=== PATIENT | female | born 1995 | race African-American/Black ===

== ENCOUNTER 2017-07-21 11:29 | Observation (INO) ==
--- NOTE | 2017-07-21 12:58 | Emergency Department Note ---
Mihai Wilson Brittany, am scribing for, and in the presence of, Rito Rowley MD 12:56. Amrik Wilson Phillip K, MD, personally performed the services described in this documentation, ascribed by Pamela Holm in my presence, and it is both accurate and complete . Arrival - Arrival Chief Complaint: Abscess Stated Complaint: referral for dr blount ED Nursing Triage Note: sent from [facility] for abscess to right buttock onset on Thursday - pt denies any drainage from the area Mode of Arrival: Ambulatory Limitations: No Limitations Source: Patient - History of Present Illness HPI Narrative: This is a 22 y/o black female, who presents to the ED for further evaluation of an abscess which started 5 days ago, She notes she was sent from the [facility] for further evaluation of a right buttocks abscess. She denies any drainage to the drainage site or a fever, but notes nausea. Pt has other complaints/pain in the ED at this time. Pt denies a PMHx. Pt denies a surgical hx. Pt denies a family medical Hx. Pt denies a social hx. Onset (ago): day(s) (Started 5 days ago) Consistency: constant Severity: moderate Date of Last Menstrual Period: now Allergies/Adverse Reactions: Allergies Allergy/AdvReac Type Severity Reaction Status Date / Time iodine Allergy Severe ANAPHYLAXIS Verified 05/30/17 15:45 Home Medications: Home Medications Medication Instructions Recorded Confirmed Type Etonogestrel [Nexplanon] 68 mg SUBCUT ONCE 07/21/17 07/21/17 History Review of System - Review of System 12 point system: reviewed and no additional remarkable complaints except as stated - Review of System Review of Systems: Abscess to the right buttocks area. Constitutional: Absent: fever Gastrointestinal: Present: nausea Medical,Surgical,& Family Hx - Medical History Neurology: No history of: Multiple Sclerosis - Social History Smoking Status: Never smoker Frequency of Alcohol Use: None Type of Drug Use: None Exam Vital Signs: Vital Signs Temperature 100.3 F H 07/21/17 15:50 Pulse Rate 89 07/21/17 15:50 Respiratory Rate 20 07/21/17 15:50 Blood Pressure 119/67 07/21/17 15:50 O2 Sat by Pulse Oximetry 100 07/21/17 15:50 - General General appearance: alert - Head Head exam: Present: atraumatic - Eye Eye exam: Present: PERRL, EOMI. Absent: conjunctival injection, nystagmus - ENT ENT exam: Present: normal exam, mucous membranes moist - Neck Neck exam: Present: full ROM, trachea midline. Absent: tenderness - Chest Chest inspection: Present: symmetric chest wall rise. Absent: tenderness - Respiratory Respiratory exam: Present: normal lung sounds bilaterally. Absent: respiratory distress - Cardiovascular Cardiovascular exam: Present: regular rate, normal rhythm, normal heart sounds. Absent: murmur, rubs, gallop, clicks - Abdominal Exam Abdominal exam: Present: soft, normal bowel sounds. Absent: tenderness - Rectal Exam Rectal exam: Present: other (Perineal abscess.There is a flucation noted. ) - Extremities Exam Extremities exam: Present: full ROM, normal capillary refill. Absent: pedal edema, calf tenderness - Back Exam Back exam: Present: full ROM. Absent: tenderness, muscle spasm, rashes - Neurological Exam Neurological exam: Present: alert, oriented X3, CN II-XII intact. Absent: motor sensory deficit - Psychiatric Psychiatric exam: Present: normal affect, normal mood. Absent: depressed, agitated, anxious, flat affect, manic - Skin Skin exam: Present: warm, dry, intact, normal color. Absent: rash, cyanosis, diaphoresis Course Course Narrative: Patient discussed with Dr. Garay. Disposition Clinical Impression: Perineal abscess Clinical Impression: (Ruled Out): Perirectal abscess Case discussed with: patient, patient's family Disposition: Still a Patient Condition: Guarded
[2017-07-21] MEDS ORDERED: CLINDAMYCIN INJ 900 MG in PREMIX 1 EACH IV ONE (13:23)
--- NOTE | 2017-07-21 13:25 | General Surg History&Physical ---
Assessment and Plan (1) Perirectal abscess Status: Acute Assessment and plan: Impression: Abscess of the right perineum Plan: Discussed options and patient like to proceed with incision and drainage. I discussed the procedure house performed and anticipated recovery. Risk of the procedure including bleeding, infection, damage to surrounding structures, need for further surgery were all discussed in detail and she would like to proceed. Current Visit: Yes History of Present Illness Chief complaint: Abscess of the perineum History of present illness: Ms. Leung is a 22 year old female has had pain redness and an "infected cyst" of the perineal region. This was beginning on Thursday and has slowly progressed. She is not seen anyone for treatment. She has some nausea. She has not eaten today. She has no fever. She is otherwise healthy. Home Medications Medication Instructions Recorded Confirmed Type Etonogestrel [Nexplanon] 68 mg SUBCUT ONCE 07/21/17 07/21/17 History Allergies Allergy/AdvReac Type Severity Reaction Status Date / Time iodine Allergy Severe ANAPHYLAXIS Verified 05/30/17 15:45 Medical,Surgical,& Family Hx - Medical History Medical History: noncontributory Neurology: No history of: Multiple Sclerosis - Social History Smoking Status: Never smoker Frequency of Alcohol Use: None Type of Drug Use: None Exam - Constitutional Vitals: Period Temp Pulse Resp BP Sys/Hinds Pulse Ox Last 24 Hr 99.2 F-99.2 F 97-97 20-22 152-152/99-99 99 General appearance: no acute distress - Head Head exam: Present: normocephalic - Neck Neck exam: Present: normal inspection - Respiratory Respiratory exam: Present: clear to auscultation bilaterally - Cardiovascular Cardiovascular exam: Present: RRR - GI/Abdominal GI/Abdominal exam: Present: soft (Nontender nondistended) - Anus/Rectum Anus/Rectum: other (In the perineal region there is an area of fluctuance with surrounding erythema. This is at the distal portion of the right labia encroaching upon the perianal region.) 12 point system: reviewed and no additional remarkable complaints except as stated
[2017-07-21] MEDS ORDERED: FAMOTIDINE 20 MG/2 ML VIAL IV ONE (14:10)
[2017-07-21] MEDS ORDERED: PROPOFOL 200 MG/20 ML VIAL IV ONE (14:38)
[2017-07-21] MEDS ORDERED: ONDANSETRON 4 MG/2 ML VIAL ONE (14:38)
[2017-07-21] MEDS ORDERED: LIDOCAINE 2% 5 ML VIAL ONE (14:38)
[2017-07-21] MEDS ORDERED: CLINDAMYCIN INJ 50 ML IV ONE (14:40)
[2017-07-21] MEDS ORDERED: MORPHINE 2 MG/1 ML SYRINGE IV PRN (14:47)
[2017-07-21] MEDS ORDERED: ACETAMINOPHEN 325 MG TABLET PO PRN (14:47)
[2017-07-21] MEDS ORDERED: ONDANSETRON 4 MG/2 ML VIAL IV PRN ×2 (14:47→15:19)
--- NOTE | 2017-07-21 14:50 | Operative Note ---
Date of procedure: 07/21/17 Pre-op diagnosis: Abscess right perineum Post-op diagnosis: same Procedure: Procedure performed: Incision and drainage of right perineum abscess Procedure in detail: After informed consent was obtained, patient was taken operating suite lights upon the operating table. After general anesthesia was induced she was placed in frog-leg position and the perineum was prepped and draped in usual sterile fashion. After procedural pause incision made over the fluctuant area and there was copious return of foul-smelling purulence. Cultures were obtained and sent. There was no necrotic tissue. All the purulence was expressed. All loculations freed by blunt finger dissection. The cavity was thoroughly irrigated and suctioned. There is good hemostasis. It was packed with half-inch iodoform gauze. Sterile dressings applied. Patient was explained taken recovery room in stable condition. All lap and needle counts correct at the end of the case per Anesthesia: DELANO Surgeon / Physician: Aiden Gimenez Estimated blood loss: other (Less than 5 cc) Specimens: other (Culture sent) Condition: stable Disposition: PACU Discharge Plan - Discharge Data Disposition: Still a Patient - Discharge Medications No Action Etonogestrel [Nexplanon] 68 mg SUBCUT ONCE - Follow Up or Referral - Forms/Instructions
[2017-07-21] MEDS ORDERED: HYDROmorphone 2 MG/1 ML VIAL IV PRN (15:19)
[2017-07-21] MEDS ORDERED: LACTATED RINGERS 1,000 ML IV SCH (15:30)
[2017-07-21] MEDS ORDERED: SEVOFLURANE 1 UNIT/15 MINUTE INH ONE (15:43)
[2017-07-21] MEDS ORDERED: MIDAZOLAM 2 MG/2 ML VIAL ONE (15:43)
[2017-07-21] MEDS ORDERED: fentaNYL 100 MCG/2 ML VIAL ONE ×2 (15:43→15:44)
--- NOTE | 2017-07-21 18:11 | Anesthesia Post-Op ---
Anesthesia Post OP - Post Ansesthetic Evaluation Patient seen in post op: Yes Resp: within normal limits CV: within normal limits Mental: within normal limits Temp: within normal limits [id number]: within normal limits Nausea and Vomiting: within normal limits Pain: within normal limits
[2017-07-21] MEDS: CLINDAMYCIN INJ 600 MG in PREMIX 1 EACH IV SCH (21:23)
[2017-07-22] MEDS: CLINDAMYCIN INJ 600 MG in PREMIX 1 EACH IV SCH ×3 (02:42→13:49)
[2017-07-22] MEDS ORDERED: PANTOPRAZOLE 40 MG TABLET PO SCH (09:00)
--- NOTE | 2017-07-22 10:48 | Discharge Summary ---
Hospital Course - Hospital Course Hospital Course: Patient is a 22-year-old female who presented with a perineal abscess which was incised and drained in the operating room. She responded well to IV clindamycin. She tolerated bedside dressing change without complication. She was discharged home in good condition with education on sitz bath, dressing changes, and oral antibiotic regimen. Oral and analgesics were provided. Her mother was at bedside who report assisting in performing her wound care. She was discharged home in good condition with only followed Dr. Gimenez. Cultures were pending at the time of discharge. Diagnosis - Discharge Diagnosis (1) Perineal abscess Status: Acute Specialty Discharge - Follow Up or Referrals Follow up with: Aiden Gimenez MD [Physician] - 1 Week Discharge Plan - Discharge Data Disposition: Disch To Home/Self Care Condition at Discharge: Stable Discharge Diet: regular diet Activity: other (Avoid aerobic activity or perspiration) Hygiene: may shower Driving: other (No driving while taking narcotics) Contact your physician if you experience:: fever over 101, Redness or swelling, Shortness of breath, pain uncontrolled by pain medications - Discharge Medications New HYDROcodone/ACETAMIN 7.5-325 [Coldiron 7.5-325] 1 - 2 tablet PO Q4H PRN #30 tablet PRN Reason: Pain Moderate To Severe (4-10) Clindamycin Cap [Cleocin Cap] 600 mg PO Q8HR #21 capsule Continue Etonogestrel [Nexplanon] 68 mg SUBCUT ONCE - Follow Up or Referral Follow Up: Aiden Gimenez MD [Physician] - 1 Week - Forms/Instructions Instructions: Clindamycin (By mouth), Sitz Bath (DC) Additional Discharge Instructions: Daily or twice daily: remove packing, shower , perform sitz bath and repack with 1/4 inch iodoform gauze provided loosely. Exam - Constitutional Vitals: Period Temp Pulse Resp BP Sys/Hinds Pulse Ox Last 24 Hr 97.5 F-100.3 F 77-103 12-26 107-152/62-99 97-100 General appearance: no acute distress - Respiratory Respiratory exam: Present: clear to auscultation bilaterally - Cardiovascular Cardiovascular exam: Present: regular rate and rhythm - GI/Abdominal GI/Abdominal exam: Present: normal bowel sounds, soft. Absent: distended, tenderness - Neurological Exam Neurological exam: Present: alert, oriented X3 - Psychiatric Psychiatric exam: Present: normal affect, normal mood - Skin Skin exam: Present: other (Perineal abscess stress dressing was removed to; packing was removed. There was no purulence or malodor noted. The area was irrigated with 20 cc of saline and was repacked with quarter inch iodoform gauze. Patient tolerated the dressing change well at bedside.) Discharge Results Procedures and tests throughout hospitalization: Pending Orders 07/21/17 Abscess Culture Routine Anaerobic Culture Routine Culture results pending Patient had I&D of perineal abscess on 07/21/2017 Labs on day of discharge: Labs from last 24 hours 07/21/17 13:36 Serum , Qual Negative DS: Provider Date of admission: 07/21/17 14:47 Primary care physician: YOGI Akers Attending physician on admission: Aiden Gimenez MD Discharging clinician: Nikkie Wright PA-C
[2017-07-22 12:40] VITALS: BP 131/76
== END 2017-07-22 14:01 | disposition home or self-care (01) ==
LOC: N.ED 11:29 → N.3E 14:23 → INTOOBSV 14:47
PROVIDERS: ADMIT Surgery; ATTEND Surgery

== ENCOUNTER 2020-05-21 04:49 | Inpatient (IN) ==
[2020-05-21 05:33] LABS: Apearance,Urine CLEAR (Clear); Bacteria,Urine Occasional /HPF (Few); Bilirubin,Urine Negative (Negative); Blood, Urine Large mg/dL (Negative); Glucose,Urine (UA) Negative (Negative); Ketones,Urine Negative (Negative); Mucus,Urine Occasional /LPF (Occasional); Nitrite,Urine Negative (Negative); Protein,Urine Negative; RBC,Urine 1 /HPF (0-4); Squamous Epithelial Cell,Urine Few /HPF (0-10); Urine Color Yellow (Yellow); Urine Urobilinogen < 2.0 EU/DL (0.2-1.0); WBC,Urine 2 /HPF (0-6)
[2020-05-21] MEDS ORDERED: BUTORPHANOL 2 MG/ML VIAL IV PRN (07:53)
[2020-05-21] MEDS ORDERED: LIDOCAINE 1% 50 ML VIAL MISC INJ ONE (07:53)
[2020-05-21] MEDS ORDERED: miSOPROStoL 200 MCG TABLET VAG PRN (07:53)
[2020-05-21] MEDS ORDERED: CARBOPROST TROMETHAMINE 250 MCG/ML AMP IM PRN (07:53)
[2020-05-21 08:19] LABS: Basophils % 0.2 % (0.0-0.8); Hematocrit 40.6 VOL% (35.7-47.0); Hemoglobin 13.8 GM/DL (12.0-16.0); Immature Granulocytes % 0.5 %; Immature Granulocytes Absolute 0.04 #; Lymphocytes # 1.5 10*3/uL (1.4-4.0); Lymphocytes % 17.8 % (21.3-54.2); Monocytes % 14.4 % (1.7-12.7); Neutrophils % 67.1 % (38.7-73.9); Platelet Count 221 T/CUMM (130-400); Red Blood Count 4.23 MC/CUMM (3.8-5.5); Red Cell Distribution Width 12.7 % (9.3-17.3); White Blood Count 8.7 T/CUMM (4-12)
[2020-05-21] MEDS: LABETALOL 100 MG TABLET PO SCH ×3 (08:32→14:42)
[2020-05-21 08:35] LABS: PT Patient Result 10.3 SECS (9.8-11.9); Partial Thromboplastin Time 28.9 SECS (23.9-33.8)
[2020-05-21 09:04] LABS: Albumin 3.2 G/DL (3.4-5.0); Bilirubin,Total 1.1 MG/DL (0.2-1.0); Osmolality,Calculated 269.8 MOS/KG (273-304); Total Protein 7.4 G/DL (6.4-8.3); Uric Acid 3.9 MG/DL (2.6-6.0)
[2020-05-21] MEDS: LACTATED RINGERS 1,000 ML IV SCH ×2 (11:32→23:00)
[2020-05-21] MEDS: ONDANSETRON 4 MG/2 ML VIAL IV PRN (11:35)
[2020-05-21] MEDS ORDERED: LACTATED RINGERS 1,000 ML IV ONE (19:34)
[2020-05-21] MEDS ORDERED: ePHEDrine 50 MG/ML VIAL IV PRN (20:00)
[2020-05-21] MEDS ORDERED: FAMOTIDINE 20 MG/2 ML VIAL IV ONE (20:00)
[2020-05-21] MEDS ORDERED: CITRIC ACID/SODIUM CITRATE 30 ML UDCUP PO ONE (20:00)
[2020-05-21] MEDS ORDERED: NALOXONE 0.4 MG/ML VIAL IV PRN (20:00)
[2020-05-21] MEDS ORDERED: diphenhydrAMINE 50 MG/1 ML VIAL IV PRN (20:00)
[2020-05-21] MEDS: fentaNYL 2 MCG/ROPIV 0.2% EPID 100 ML EPIDURAL SCH (21:19)
[2020-05-21 22:04] LABS: Apearance,Urine CLEAR (Clear); Bilirubin,Urine Negative (Negative); Blood, Urine Negative (Negative); Glucose,Urine (UA) Negative (Negative); Ketones,Urine 80 mg/dL (Negative); Mucus,Urine Occasional /LPF (Occasional); Nitrite,Urine Negative (Negative); Protein,Urine Negative; RBC,Urine <1 /HPF (0-4); Squamous Epithelial Cell,Urine Occasional /HPF (0-10); Urine Color Yellow (Yellow); Urine Specific Gravity 1.017 (1.001-1.035); Urine Urobilinogen < 2.0 EU/DL (0.2-1.0); WBC,Urine 1 /HPF (0-6)
[2020-05-22] MEDS: LABETALOL 100 MG TABLET PO SCH ×3 (03:32→19:31)
[2020-05-22] MEDS: LACTATED RINGERS 1,000 ML IV SCH (05:23)
[2020-05-22] MEDS: fentaNYL 2 MCG/ROPIV 0.2% EPID 100 ML EPIDURAL SCH (13:30)
[2020-05-22] MEDS ORDERED: miSOPROStoL 200 MCG TABLET ONE (13:30)
[2020-05-22] MEDS ORDERED: TRANEXAMIC ACID 1,000 MG/10 ML VIAL ONE (13:30)
[2020-05-22] MEDS ORDERED: CARBOPROST TROMETHAMINE 250 MCG/ML AMP IM ONE (13:31)
[2020-05-22] MEDS ORDERED: OXYTOCIN/LR 20 UNIT/1,000 ML BAG IV ONE ×3 (13:31→19:03)
[2020-05-22] MEDS ORDERED: METHYLERGONOVINE 0.2 MG/1 ML AMP ONE (13:31)
[2020-05-22] MEDS ORDERED: LIDOCAINE 1% 50 ML VIAL ONE (13:40)
[2020-05-22] MEDS: ONDANSETRON 4 MG/2 ML VIAL IV PRN (14:20)
[2020-05-22 18:43] LABS: Cord Arterial Blood HCO3 17.7 MMOL/L
[2020-05-22 18:46] LABS: Cord Venous Blood HCO3 18.6 MMOL/L; Cord Venous Blood PCO2 37.3 MMHG; Cord Venous Blood PO2 31.6
[2020-05-22] MEDS ORDERED: BISACODYL 10 MG SUPP RECTAL PRN (19:03)
[2020-05-22] MEDS ORDERED: ACETAMINOPHEN 325 MG TABLET PO PRN (19:03)
[2020-05-22] MEDS ORDERED: BENZOCAINE 20%/MENTHOL 0.5% SPRAY 56 GM CAN TOP PRN (19:03)
[2020-05-22] MEDS ORDERED: DIPH/TET/ACEL PERT BOOSTER VACCINE 0.5 ML VIAL IM ONE (19:03)
[2020-05-22] MEDS ORDERED: RHO(D) IMMUNE GLOBULIN 300 MCG SYRINGE IM ONE (19:03)
[2020-05-22] MEDS ORDERED: HYDROCORTISONE 2.5% RECTAL CREAM 30 GM TUBE TOP PRN (19:03)
[2020-05-22] MEDS ORDERED: MEASLES/MUMPS/RUBELLA VACCINE 0.5 ML VIAL SUBCUT ONE (19:03)
[2020-05-22] MEDS ORDERED: ONDANSETRON 4 MG/2 ML VIAL IV PRN (19:03)
[2020-05-22] MEDS ORDERED: IBUPROFEN 800 MG TABLET PO PRN (19:03)
[2020-05-22] MEDS ORDERED: WITCH HAZEL PADS 100/JAR TOP PRN (19:03)
[2020-05-22] MEDS ORDERED: LANOLIN 50% CREAM 0.3 OZ TUBE TOP PRN (19:03)
[2020-05-22] MEDS ORDERED: oxyCODONE/ACETAMINOPHEN 5-325 MG TABLET PO PRN (19:03)
[2020-05-22] MEDS: oxyCODONE/ACETAMINOPHEN 5-325 MG TABLET PO PRN (20:56)
[2020-05-22] MEDS: DOCUSATE SODIUM 100 MG CAPSULE PO SCH (22:01)
[2020-05-23] MEDS: LACTATED RINGERS 1,000 ML IV SCH ×8 (04:18→18:05)
[2020-05-23] MEDS: LABETALOL 100 MG TABLET PO SCH ×4 (04:19→20:49)
[2020-05-23] MEDS: oxyCODONE/ACETAMINOPHEN 5-325 MG TABLET PO PRN (06:03)
[2020-05-23 06:27] LABS: Basophils % 0.2 % (0.0-0.8); Eosinophils % 0.2 % (0.00-10.9); Hematocrit 33.5 VOL% (35.7-47.0); Hemoglobin 11.3 GM/DL (12.0-16.0); Immature Granulocytes % 0.8 %; Immature Granulocytes Absolute 0.19 #; Lymphocytes # 1.8 10*3/uL (1.4-4.0); Lymphocytes % 7.5 % (21.3-54.2); Mean Corpuscular HGB Conc 33.7 GM/DL (32-36); Mean Corpuscular Volume 97.4 FL (87-102); Mean Platelet Volume 10.5 FL (9.6-12.0); Monocytes % 12.5 % (1.7-12.7); Neutrophils % 78.8 % (38.7-73.9); Platelet Count 190 T/CUMM (130-400); Red Blood Count 3.44 MC/CUMM (3.8-5.5); Red Cell Distribution Width 12.7 % (9.3-17.3); White Blood Count 24.1 T/CUMM (4-12)
[2020-05-23 07:27] LABS: Band Neutrophils 4 % (0-10); Lymphocytes 7 % (20-55); Segmented Neutrophils 79 % (50-85); Total Cells Counted 100
[2020-05-23 07:28] LABS: Macrocytosis Slight
[2020-05-23] MEDS: DOCUSATE SODIUM 100 MG CAPSULE PO SCH ×2 (08:59→20:49)
[2020-05-23] MEDS: fentaNYL 2 MCG/ROPIV 0.2% EPID 100 ML EPIDURAL SCH (14:49)
[2020-05-23] MEDS ORDERED: IBUPROFEN 800 MG TABLET PO PRN (20:53)
[2020-05-24] MEDS: DOCUSATE SODIUM 100 MG CAPSULE PO SCH (09:34)
[2020-05-24] MEDS: LABETALOL 100 MG TABLET PO SCH ×2 (09:34→16:04)
[2020-05-24 16:10] VITALS: BP 176/91
[2020-05-24] MEDS: LACTATED RINGERS 1,000 ML IV SCH (16:42)
== END 2020-05-24 19:30 | disposition home or self-care (01) | DRG 560 ==
LOC: N.LDOUT 04:49 → N.LD 04:51 → N.2E 05-23 01:03
PROVIDERS: ADMIT Obstetrics & Gynecology; ATTEND Obstetrics & Gynecology